=== PATIENT | male | born 1985 | race Caucasian/White ===

== ENCOUNTER 2017-06-23 19:22 | Emergency (ER) | payer BC, OTHER ==
--- NOTE | 2017-06-23 19:57 | EDM.PDOC ---
ED HPI GENERAL MEDICAL PROBLEM - General Chief Complaint: Respiratory Problem Stated Complaint: SHORTNESS OF BREATHE SENT FROM THE CLINIC Time Seen by Provider: 06/23/17 19:30 Source of Information: Reports: Patient, Family () History Limitations: Reports: No Limitations - History of Present Illness INITIAL COMMENTS - FREE TEXT/NARRATIVE: The patient states that he developed dyspnea, wheezing, and a cough productive of whitish sputum while shoveling snow outside in the cold air around 01:00 this morning. He states that once inside, his symptoms gradually resolved. He was able to go to work, remaining inside, without difficulty today, however, when he went outside again around 17:45 to 19:00 tonight, his symptoms recurred. Now that he is inside again, his symptoms have significantly improved. He states that he has been sneezing for the past 40 minutes. No recent fever, nausea, vomiting, constipation, diarrhea, or urinary symptoms. No chest pain or palpitations. No prior similar symptoms. The patient states that he took 2 tablets of Sudafed PE around 03:00 this morning. The patient states that he had asthma as a small child, but none since. The patient does not have a PCP. Chest Pain Score (Numeric/FACES): 6 - Related Data Allergies Allergy/AdvReac Type Severity Reaction Status Date / Time No Known Allergies Allergy Verified 06/23/17 19:34 Home Meds: Home Meds . [No Known Home Meds] 06/23/17 [History] Past Medical History Other HEENT History: broken nose in high school; fractured jaw with plates and screws Respiratory History: Reports: Asthma (asa small child) Musculoskeletal History: Reports: Other (See Below) Other Musculoskeletal History: right foot surgery Social & Family History - Tobacco Use Smoking Status *Q: Current Every Day Smoker Years of Tobacco use: 4 Packs/Tins Daily: 0.3 - Caffeine Use Caffeine Use: Reports: Coffee, Soda - Recreational Drug Use Recreational Drug Use: No - Living Situation & Occupation Living situation: Reports: , with Spouse, with Family Occupation: Employed ED ROS GENERAL - Review of Systems Review Of Systems: ROS reveals no pertinent complaints other than HPI. ED EXAM, GENERAL - Physical Exam Exam: See Below Exam Limited By: No Limitations General Appearance: Alert, WD/WN, No Apparent Distress Eye Exam: Bilateral Eye: Normal Inspection Ears: Normal External Exam, Hearing Grossly Normal Nose: Normal Inspection, No Blood Throat/Mouth: Normal Inspection, Normal Lips, Normal Voice, No Airway Compromise Head: Atraumatic, Normocephalic Neck: Normal Inspection, Full Range of Motion Respiratory/Chest: No Respiratory Distress, No Accessory Muscle Use, Decreased Breath Sounds, Wheezing (Slight, scattered, both inspiratory and expiratory), Prolonged Expiration (mild). No: Crackles, Rhonchi Cardiovascular: Normal Peripheral Pulses, Regular Rate, Rhythm, No Gallop, No JVD, No Murmur, No Rub Peripheral Pulses: 4+: Radial (L), Radial (R) GI/Abdominal: Normal Bowel Sounds, Soft, Non-Tender, No Organomegaly, No Distention, No Abnormal Bruit, No Mass (Male) Exam: Deferred Rectal (Males) Exam: Deferred Back Exam: Normal Inspection, Full Range of Motion, NT Extremities: Normal Inspection, Normal Range of Motion, No Pedal Edema, Normal Capillary Refill Neurological: Alert, Oriented, Normal Cognition, No Motor/Sensory Deficits Psychiatric: Normal Affect Skin Exam: Warm, Dry, Intact, Normal Color, No Rash EKG INTERPRETATION EKG Date: 06/23/17 Time: 19:57 Rhythm: NSR Rate (Beats/Min): 98 [place]: Normal P-Wave: Present QRS: Normal ST-T: Normal QT: Normal Comparison: NA - No Prior EKG Course - Vital Signs Last Recorded V/S: Last Vital Signs Temp 36.9 C 06/23/17 19:30 Pulse 113 H 06/23/17 19:30 Resp 20 06/23/17 19:30 BP 164/100 H 06/23/17 19:30 Pulse Ox 94 L 06/23/17 20:59 - Orders/Labs/Meds Orders: Active Orders 24 hr Category Date Time Status EKG Documentation Completion [RC] STAT Care 06/23/17 19:46 Active RT Aerosol Therapy [RC] ASDIRECTED Care 06/23/17 19:58 Active Chest 2V [CR] Stat Exams 06/23/17 19:46 Taken Labs: Laboratory Tests 06/23/17 06/23/17 06/23/17 Range/Units 20:05 20:05 20:05 WBC 9.56 H (4.23-9.07) K/mm3 RBC 5.37 (4.63-6.08) M/mm3 Hgb 17.0 (13.7-17.5) gm/L Hct 48.7 (40.1-51.0) % MCV 90.7 (79.0-92.2) fl MCH 31.7 (25.7-32.2) pg MCHC 34.9 (32.2-35.5) g/dl RDW Std Deviation 40.8 (35.1-43.9) fL Plt Count 307 (163-337) K/mm3 MPV 10.2 (9.4-12.3) fl Neutrophils % (Manual) 50 (40-60) % Band Neutrophils % 0 (0-10) % Lymphocytes % (Manual) 33 (20-40) % Atypical Lymphs % 0 % Monocytes % (Manual) 4 (2-10) % Eosinophils % (Manual) 12 H (0.8-7.0) % Basophils % (Manual) 1 (0.2-1.2) Platelet Estimate Adequate Plt Morphology Comment Normal RBC Morph Comment Normal PT 10.7 (8.0-13.0) SECONDS INR 0.98 APTT 29 (22-36) SECONDS D-Dimer, Quantitative 0.28 (0.19-0.59) mg/L Puncture Site ABG pH (7.35-7.45) ABG pCO2 (35.0-45.0) mmHg ABG pO2 (80.0-100.0) mmHg ABG HCO3 (22.0-26.0) meq/L ABG O2 Saturation (96.0-97.0) % ABG Base Excess (-2-2.0) A-a Gradient mmHg O2 Delivery Device FiO2 (21.00-100.00) % Sodium 139 (136-145) mEq/L Potassium 3.6 (3.5-5.1) mEq/L Chloride 104 (98-107) mEq/L Carbon Dioxide 21 (21-32) mEq/L Anion Gap 17.6 H (5-15) BUN 21 H (7-18) mg/dL Creatinine 1.4 H (0.7-1.3) mg/dL Est Cr Clr Drug Dosing 82.17 mL/min Estimated GFR (MDRD) 60 (>60) mL/min BUN/Creatinine Ratio 15.0 (14-18) Glucose 113 H (74-106) mg/dL Lactic Acid (0.4-2.0) mmol/L Calcium 9.3 (8.5-10.1) mg/dL Total Bilirubin 0.4 (0.2-1.0) mg/dL AST TNP ALT 61 (16-63) U/L Alkaline Phosphatase 99 (46-116) U/L Troponin I < 0.017 (0.00-0.056) ng/mL NT-Pro-B Natriuret Pep 14 (0-125) pg/mL Total Protein 8.1 (6.4-8.2) g/dl Albumin 4.2 (3.4-5.0) g/dl Globulin 3.9 gm/dL Albumin/Globulin Ratio 1.1 (1-2) 06/23/17 06/23/17 Range/Units 20:15 20:17 WBC (4.23-9.07) K/mm3 RBC (4.63-6.08) M/mm3 Hgb (13.7-17.5) gm/L Hct (40.1-51.0) % MCV (79.0-92.2) fl MCH (25.7-32.2) pg MCHC (32.2-35.5) g/dl RDW Std Deviation (35.1-43.9) fL Plt Count (163-337) K/mm3 MPV (9.4-12.3) fl Neutrophils % (Manual) (40-60) % Band Neutrophils % (0-10) % Lymphocytes % (Manual) (20-40) % Atypical Lymphs % % Monocytes % (Manual) (2-10) % Eosinophils % (Manual) (0.8-7.0) % Basophils % (Manual) (0.2-1.2) Platelet Estimate Plt Morphology Comment RBC Morph Comment PT (8.0-13.0) SECONDS INR APTT (22-36) SECONDS D-Dimer, Quantitative (0.19-0.59) mg/L Puncture Site Lt brachial ABG pH 7.39 (7.35-7.45) ABG pCO2 35.2 (35.0-45.0) mmHg ABG pO2 63.0 L (80.0-100.0) mmHg ABG HCO3 20.8 L (22.0-26.0) meq/L ABG O2 Saturation 92.9 L (96.0-97.0) % ABG Base Excess -3.0 L (-2-2.0) A-a Gradient 28 mmHg O2 Delivery Device Room air FiO2 21.00 (21.00-100.00) % Sodium (136-145) mEq/L Potassium (3.5-5.1) mEq/L Chloride (98-107) mEq/L Carbon Dioxide (21-32) mEq/L Anion Gap (5-15) BUN (7-18) mg/dL Creatinine (0.7-1.3) mg/dL Est Cr Clr Drug Dosing mL/min Estimated GFR (MDRD) (>60) mL/min BUN/Creatinine Ratio (14-18) Glucose (74-106) mg/dL Lactic Acid 0.8 (0.4-2.0) mmol/L Calcium (8.5-10.1) mg/dL Total Bilirubin (0.2-1.0) mg/dL AST ALT (16-63) U/L Alkaline Phosphatase (46-116) U/L Troponin I (0.00-0.056) ng/mL NT-Pro-B Natriuret Pep (0-125) pg/mL Total Protein (6.4-8.2) g/dl Albumin (3.4-5.0) g/dl Globulin gm/dL Albumin/Globulin Ratio (1-2) Meds: Medications Discontinued Medications Generic Name Dose Route Start Last Admin Trade Name Freq PRN Reason Stop Dose Admin Albuterol/Ipratropium 3 ml 06/23/17 19:58 06/23/17 20:59 Duoneb 3.0-0.5 Mg/3 Ml NEB 06/23/17 19:59 3 ml ONETIME ONE Administration - Re-Assessments/Exams Free Text/Narrative Re-Assessment/Exam: 06/23/17 20:31 Two-view chest radiograph appears to be grossly normal. Cardiac silhouette is within normal limits. No pulmonary vascular congestion. No pleural effusions. No focal infiltrate. No pneumothorax. Formal read per the Radiologist pending. 06/23/17 22:08 Test results discussed with the patient and his . Today's workup is unremarkable, and does not explain the cause of the patient's dyspnea on exertion. His lung sounds and sense of breathing improved substantially following a DuoNeb - he no longer has any wheezing, and his air movement is good. Clinically, I suspect that the patient may be suffering from asthma, however, the correct diagnosis of asthma is made by pulmonary function tests. I will refer the patient to Dr. Pinto in the clinic for further evaluation, and in the meantime, I am advising that he avoid any strenuous work outside in the cold air. The patient is agreeable. Departure - Departure Time of Disposition: 22:09 Disposition: Home, Self-Care 01 Condition: Good Clinical Impression: Dyspnea on exertion - Discharge Information Instructions: Shortness of Breath, [id number] Referrals: PCP,Zachary [Primary Care Provider] - Anastacio Pinto [Physician] - Forms: ED Department Discharge Additional Instructions: You were seen in the emergency room for shortness of breath while exerting yourself outside in the cold air. Workup in the ER included blood work, an arterial blood gas, an influenza swab, an ECG, and a chest x-ray. Your entire workup was unremarkable, and does not explain the cause of your symptoms. You do not have influenza. You do not have pneumonia. You do not have a blood clot in your lungs. There is no suggestion that you have suffered a heart attack. You are not anemic. Your symptoms improved following a DuoNeb. Clinically, we suspect that you have asthma, however, this diagnosis is made with pulmonary function tests. Follow-up with Dr. Pinto in the clinic for further evaluation. In the meantime, avoid strenuous work outside in the cold air. If any other problems, please do not hesitate to return to the ER. - My Orders Last 24 Hours: My Active Orders 06/23/17 19:46 EKG Documentation Completion [RC] STAT Chest 2V [CR] Stat 06/23/17 19:58 RT Aerosol Therapy [RC] ASDIRECTED - Assessment/Plan Last 24 Hours: My Active Orders 06/23/17 19:46 EKG Documentation Completion [RC] STAT Chest 2V [CR] Stat 06/23/17 19:58 RT Aerosol Therapy [RC] ASDIRECTED
[2017-06-23] MEDS ORDERED: Albuterol/Ipratropium 3.0-0.5 MG/3 ML Neb Soln NEB ONE (19:58)
--- NOTE | 2017-06-25 10:56 | CR ---
Chest: Two views of the chest were obtained. Comparison: No previous chest x-ray. Heart size and mediastinum are normal. Lungs are clear. Bony structures are unremarkable. Impression: 1. Nothing acute is appreciated on two-view chest x-ray. Diagnostic code #1
== END 2017-06-23 22:20 | disposition home or self-care (01) ==
LOC: JD.ED 19:22
DX: R06.00 Dyspnea, unspecified (principal); F17.210 Nicotine dependence, cigarettes, uncomplicated; J45.909 Unspecified asthma, uncomplicated; Z98.890 Other specified postprocedural states
CPT/HCPCS: 36415; 36600; 71020; 71020-26; 80053; 82803; 83605; 83880; 84484; 85025; 85379; 85610; 85730; 87804; 93005; 93010; 94640; 99284-25; 99285-25

== ENCOUNTER 2018-12-11 08:36 | Emergency (ER) | payer BC, OTHER ==
--- NOTE | 2018-12-11 09:26 | EDM.PDOC ---
ED HPI GENERAL MEDICAL PROBLEM - General Chief Complaint: Respiratory Problem Stated Complaint: COLD FEELING IN CHEST Time Seen by Provider: 12/11/18 08:58 Source of Information: Reports: Patient, RN Notes Reviewed History Limitations: Reports: No Limitations - History of Present Illness INITIAL COMMENTS - FREE TEXT/NARRATIVE: The patient states that he performed his usual routine this morning, including waking up, showering, inhaling his Brio, dropping his child off, going to [employer], and loading his pickup truck. He states that he went to a gas station to get some gas, and while walking at the gas station around 07:00, he started feeling lightheaded. He then started having a cold sensation in his anterior central chest. He states that it felt almost like he had swallowed an ice cube that got stuck in his throat. His symptoms resolved around 09:05, while here in the ED, and at present he feels completely back to normal. No prior similar symptoms. The patient denies having associated dyspnea or wheezing, palpitations, nausea, or diaphoresis. He acknowledges that he has been feeling anxious. He states that a friend, and the father of a friend had heart attacks last week , and he is concerned about that. The patient's PCP is Jessica Barber. - Related Data Allergies Allergy/AdvReac Type Severity Reaction Status Date / Time No Known Allergies Allergy Verified 12/11/18 08:52 Home Meds: Home Meds Fluticasone/Vilanterol [Breo Ellipta 200-25 Mcg INH] 1 inh INH DAILY 12/11/18 [ History] Past Medical History HEENT History: Reports: Allergic Rhinitis Respiratory History: Reports: Asthma (suspected, as a child) Musculoskeletal History: Reports: Fracture (Nasal, mandible) - Past Surgical History HEENT Surgical History: Reports: Other (See Below) (Mandible fracture repair) Musculoskeletal Surgical History: Reports: Other (See Below) (Left foot surgery) Social & Family History - Tobacco Use Smoking Status *Q: Former Smoker Years of Tobacco use: 11 Packs/Tins Daily: 0.2 Month/Year Tobacco Last Used: Quit 2015 - Caffeine Use Caffeine Use: Reports: Coffee, Soda - Alcohol Use Alcohol Use History: Yes Alcohol Use Frequency: Socially - Recreational Drug Use Recreational Drug Use: No - Living Situation & Occupation Living situation: Reports: , with Spouse, with Family (2 kids) Occupation: Employed (Field sales) ED ROS GENERAL - Review of Systems Review Of Systems: ROS reveals no pertinent complaints other than HPI. ED EXAM, GENERAL - Physical Exam Exam: See Below Exam Limited By: No Limitations General Appearance: Alert, WD/WN, No Apparent Distress Eye Exam: Bilateral Eye: EOMI, Normal Inspection Ears: Normal External Exam, Hearing Grossly Normal Nose: Normal Inspection Throat/Mouth: Normal Inspection, Normal Lips, Normal Voice, No Airway Compromise Head: Atraumatic, Normocephalic Neck: Normal Inspection, Full Range of Motion Respiratory/Chest: No Respiratory Distress, Lungs Clear, Normal Breath Sounds, No Accessory Muscle Use, Chest Non-Tender (including the sternum and bilateral pectoralis muscles) Cardiovascular: Normal Peripheral Pulses, Regular Rate, Rhythm, No Edema, No Gallop, No JVD, No Murmur, No Rub Peripheral Pulses: 4+: Radial (L), Radial (R) GI/Abdominal: Normal Bowel Sounds, Soft, Non-Tender, No Organomegaly, No Distention, No Abnormal Bruit, No Mass (Male) Exam: Deferred Rectal (Males) Exam: Deferred Back Exam: Normal Inspection, Full Range of Motion, NT Extremities: Normal Inspection, Normal Range of Motion, No Pedal Edema, Normal Capillary Refill Neurological: Alert, Oriented, Normal Cognition, No Motor/Sensory Deficits Psychiatric: Anxious Skin Exam: Warm, Dry, Intact, Normal Color, No Rash EKG INTERPRETATION EKG Date: 12/11/18 Time: 09:38 Rhythm: NSR Rate (Beats/Min): 65 [place]: Normal P-Wave: Present QRS: Normal ST-T: Normal QT: Normal Comparison: No Change (06/23/2017) Course - Vital Signs Last Recorded V/S: Last Vital Signs Temp 36.9 C 12/11/18 08:53 Pulse 88 12/11/18 08:53 Resp 18 12/11/18 08:53 BP 148/89 H 12/11/18 08:53 Pulse Ox 98 12/11/18 08:53 Orthostatic Blood Pressure [ 138/87 Standing] Orthostatic Blood Pressure [ 135/93 Sitting] Orthostatic Blood Pressure [ 135/72 Supine] - Orders/Labs/Meds Orders: Active Orders 24 hr Category Date Time Status EKG Documentation Completion [RC] STAT Care 12/11/18 09:25 Active Orthostatic Vital Signs [RC] STAT Care 12/11/18 09:24 Active Labs: Laboratory Tests 12/11/18 12/11/18 Range/Units 09:35 09:35 WBC 7.63 (4.23-9.07) K/mm3 RBC 4.98 (4.63-6.08) M/mm3 Hgb 15.7 (13.7-17.5) gm/L Hct 45.4 (40.1-51.0) % MCV 91.2 (79.0-92.2) fl MCH 31.5 (25.7-32.2) pg MCHC 34.6 (32.2-35.5) g/dl RDW Std Deviation 41.9 (35.1-43.9) fL Plt Count 290 (163-337) K/mm3 MPV 10.1 (9.4-12.3) fl Neutrophils % (Manual) 55 (40-60) % Band Neutrophils % 0 (0-10) % Lymphocytes % (Manual) 40 (20-40) % Atypical Lymphs % 0 % Monocytes % (Manual) 5 (2-10) % Eosinophils % (Manual) 0 L (0.8-7.0) % Basophils % (Manual) 0 L (0.2-1.2) Platelet Estimate Adequate RBC Morph Comment Normal Sodium 140 (136-145) mEq/L Potassium 4.4 (3.5-5.1) mEq/L Chloride 105 (98-107) mEq/L Carbon Dioxide 26 (21-32) mEq/L Anion Gap 13.4 (5-15) BUN 16 (7-18) mg/dL Creatinine 1.1 (0.7-1.3) mg/dL Est Cr Clr Drug Dosing 102.68 mL/min Estimated GFR (MDRD) > 60 (>60) mL/min BUN/Creatinine Ratio 14.5 (14-18) Glucose 118 H (74-106) mg/dL Calcium 9.3 (8.5-10.1) mg/dL Magnesium 1.9 (1.8-2.4) mg/dl Total Bilirubin 0.3 (0.2-1.0) mg/dL AST 17 (15-37) U/L ALT 48 (16-63) U/L Alkaline Phosphatase 99 (46-116) U/L Troponin I < 0.017 (0.00-0.056) ng/mL Total Protein 7.7 (6.4-8.2) g/dl Albumin 4.0 (3.4-5.0) g/dl Globulin 3.7 gm/dL Albumin/Globulin Ratio 1.1 (1-2) - Re-Assessments/Exams Free Text/Narrative Re-Assessment/Exam: 12/11/18 09:24 The patient's history seems most consistent with anxiety, however, I have ordered orthostatics, some blood work, and an ECG, just to make sure that no significant metabolic abnormalities are present. At present, the patient states that he feels entirely back to normal, and his oxygen saturation is 95% on room air, therefore an ABG would not be of diagnostic utility. 12/11/18 10:00 The patient is not orthostatic. 12/11/18 10:50 Test results discussed with the patient. His CBC is entirely normal. His CMP is remarkable only for a blood glucose mildly elevated at 118, and is otherwise completely normal. His magnesium level is normal. His troponin is undetectably low. I explained to the patient that, while I cannot prove it, I suspect that his symptoms are related to anxiety. Since this is new for the patient, nothing needs to be done, however, if his symptoms persist or recur, he should follow- up with his PCP to discuss treatment for anxiety. The patient requested a note to return to work. Departure - Departure Time of Disposition: 10:52 Disposition: Home, Self-Care 01 Condition: Good Clinical Impression: Anxiety - Discharge Information *PRESCRIPTION DRUG MONITORING PROGRAM REVIEWED*: Not Applicable *COPY OF PRESCRIPTION DRUG MONITORING REPORT IN PATIENT IRVING: Not Applicable Referrals: Jessica Barber PA [Physician [employer]] - Forms: ED Department Discharge, ED Return to Work/School Form Additional Instructions: You were seen in the emergency room for feeling lightheaded and a sensation of cold in your chest, this Monday. Workup in the ER included blood work, positional blood pressure checks, and an ECG. With the exception of your blood sugar being found to be slightly elevated at 118, the remainder of your workup was entirely unremarkable. You have not suffered a heart attack. Based on your history, physical exam, and ER tests, the cause of your symptoms was most likely due to anxiety. You may return to work without restrictions. If your symptoms persist or recur, please follow-up with your PCP, URSZULA Montero, to discuss treatment options for anxiety. If any other problems, please do not hesitate to return to the ER. - My Orders Last 24 Hours: My Active Orders 12/11/18 09:24 Orthostatic Vital Signs [RC] STAT 12/11/18 09:25 EKG Documentation Completion [RC] STAT - Assessment/Plan Last 24 Hours: My Active Orders 12/11/18 09:24 Orthostatic Vital Signs [RC] STAT 12/11/18 09:25 EKG Documentation Completion [RC] STAT
== END 2018-12-11 11:03 | disposition home or self-care (01) ==
LOC: JD.ED 08:36
DX: F41.9 Anxiety disorder, unspecified (principal); Z79.899 Other long term (current) drug therapy; Z87.891 Personal history of nicotine dependence
CPT/HCPCS: 36415; 80053; 83735; 84484; 85007; 85027; 93005; 99283-25

== ENCOUNTER 2023-07-29 00:12 | Emergency (ER) | payer BC, OTHER ==
[2023-07-29] MEDS ORDERED: Diphtheria,Pertussis(Acell),Tetanus Vaccine 0.5 ML Syringe IM ONE (00:56)
[2023-07-29] MEDS ORDERED: Acetaminophen 325 MG Tab PO ONE (01:12)
[2023-07-29] MEDS ORDERED: Bacitracin Oint 15 GM Tube TOP ONE (01:23)
== END 2023-07-29 01:30 | disposition home or self-care (01) ==
LOC: JD.ED 00:12
DX: S01.01XA Laceration without foreign body of scalp, initial encounter (principal); Z23 Encounter for immunization; F17.210 Nicotine dependence, cigarettes, uncomplicated; W18.09XA Striking against other object with subsequent fall, initial encounter
CPT/HCPCS: 12001; 90471; 90715; 99283; A9270; 12011; 99282

== ENCOUNTER 2023-08-03 13:24 | Emergency (ER) | payer BC | END 2023-08-03 13:50 | disposition home or self-care (01) | LOC: JD.ED 13:24 | DX: S01.01XD Laceration without foreign body of scalp, subsequent encounter (principal); Z48.02 Encounter for removal of sutures | CPT/HCPCS: 99281 ==